=== PATIENT | female | born 1950 | race Caucasian/White ===

== ENCOUNTER → 2016-12-15 | Outpatient (CLI) | payer MEDICARE, BC ==
--- NOTE | 2016-12-16 16:05 | CR ---
EXAM DATE: 12/15/16 PATIENT'S AGE: 66 Patient: LAURA RAMIREZ Facility: [place], [place] Site . Site : 1950 Study: XRay Extremity Right [id number]/27/2017 2:26:23 PM Ordering Physician: Myra Nichols Final Report: HISTORY: Displaced fracture 5th metatarsal. Findings: Three standing radiographs of the right foot demonstrates a marked hallux valgus deformity with moderate degenerative change at the 1st metatarsophalangeal joint. There is a slightly comminuted fracture of the distal diaphysis of the 4th metatarsal with a small amount of elder angulation of the knee distal fracture fragment. There is a slightly comminuted fracture of the distal 5th metatarsal diaphysis with medial displacement of the distal fracture fragments. No definite bridging callus is seen. There is a traction spur at the plantar aspect of the calcaneus. Impression: Slightly comminuted fractures of the distal 4th and 5th metatarsal diaphyses. Dictated by Rossy Bardales MD @ Dec 16 2016 12:21AM (Electronic Signature) Report Signed by Proxy. TANG
== END ==
LOC: MW.CHPOD 13:50
PROVIDERS: ATTEND Podiatrist Foot & Ankle Surgery
DX: S92.351A Displaced fracture of fifth metatarsal bone, right foot, initial encounter for closed fracture (principal); S92.341A Displaced fracture of fourth metatarsal bone, right foot, initial encounter for closed fracture; R26.9 Unspecified abnormalities of gait and mobility; M79.671 Pain in right foot
CPT/HCPCS: 73630-26-RT; 73630-RT; 99215

== ENCOUNTER 2020-07-07 11:19 | Day surgery (SDC) | payer MEDICARE, BC ==
[~2020-07-07 11:19] MED LIST: Lactated Ringers 1,000 ML IV SCH; Midazolam 1 MG/ML 2 ML SDV ONE; Propofol 200 MG/20 ML SDV ONE; Sodium Chloride 0.9% 10 ML SDV IV PRN; Sodium Chloride 0.9% 10 ML Syringe FLUSH PRN; Sodium Chloride 0.9% 2.5 ML Syringe FLUSH PRN; fentaNYL 100 MCG/2 ML SDV ONE
--- NOTE | 2020-07-07 12:01 | PCM.PREANE ---
Preanesthetic Assessment - Anesthesia/Transfusion/Family Hx Anesthesia History: Prior Anesthesia Without Reaction Transfusion History: No Prior Transfusion(s) - Review of Systems General: No Symptoms Pulmonary: No Symptoms Cardiovascular: No Symptoms Gastrointestinal: No Symptoms Neurological: No Symptoms Other: Reports: None - Physical Assessment NPO Status Date: 07/07/20 NPO Status Time: 09:00 (water and pop) Height: 1.52 m Weight: 59.874 kg ASA Class: 3 Mental Status: Alert & Oriented x3 Airway Class: Mallampati = 2 Dentition: Reports: Normal Dentition Thyro-Mental Finger Breadths: 2 Mouth Opening Finger Breadths: 3 ROM/Head Extension: Full Lungs: Clear to Auscultation, Normal Respiratory Effort Cardiovascular: Regular Rate, Regular Rhythm - Allergies Allergies/Adverse Reactions: Allergies Allergy/AdvReac Type Severity Reaction Status Date / Time Penicillins Allergy Swelling Verified 07/01/20 11:29 povidone-iodine Allergy Swelling Verified 07/01/20 11:29 [From Betadine] soap [From Betadine] Allergy Swelling Verified 07/01/20 11:29 - Acknowledgements Anesthesia Type Planned: MAC (The patient understands and accepts the anesthetic risks and benefits, including possible conversion to general anesthesia. She has signed the consent. ) PreAnesthesia Questionnaire HEENT History: Reports: Macular Degeneration Other HEENT History: wears glasses Cardiovascular History: Reports: Hypertension Respiratory History: Reports: COPD (took inhalers this morning) Gastrointestinal History: Reports: Colon Polyp, Other (See Below) Other Gastrointestinal History: perianal fistula Genitourinary History: Reports: None [employer] History: Reports: Musculoskeletal History: Reports: Arthritis, Fracture Other Musculoskeletal History: hx fx bone in rt foot Neurological History: Reports: None Psychiatric History: Reports: None Endocrine/Metabolic History: Reports: None Hematologic History: Reports: None Immunologic History: Reports: None Oncologic (Cancer) History: Reports: Breast Dermatologic History: Reports: None - Infectious Disease History Infectious Disease History: Reports: None - Past Surgical History Head Surgeries/Procedures: Reports: None HEENT Surgical History: Reports: None Respiratory Surgical History: Reports: None GI Surgical History: Reports: Colonoscopy Female Surgical History: Reports: Breast Biopsy, Section Other Female Surgeries/Procedures: breast lumpectomy for malignant neoplasm of breast followed with radiation Endocrine Surgical History: Reports: None Neurological Surgical History: Reports: None Musculoskeletal Surgical History: Reports: None Oncologic Surgical History: Reports: Lumpectomy Dermatological Surgical History: Reports: None - SUBSTANCE USE Tobacco Use Status *Q: Current Every Day Tobacco User (for 40 years) Tobacco Use Within Last Twelve Months: Cigarettes Days Per Week of Alcohol Use: 0 Recreational Drug Use History: No - HOME MEDS Home Medications: Home Meds Albuterol [Ventolin HFA] 2 puff INH QID PRN 07/01/20 [History] Anastrozole [Arimidex] 1 mg PO DAILY 07/01/20 [History] Budesonide/Formoterol Fumarate [Symbicort 80-4.5 MCG] 2 puff INH BID 07/01/20 [History] Calcium Carb/Vit D3/Minerals [Calcium 600+D Plus Minerals] 1 tab PO BID 07/01/20 [History] Latanoprost/Pf [Latanoprost 0.005% Eye Drop] 1 drop EYEBOTH BEDTIME 07/01/20 [History] Merritt-3/DHA/Epa/Fish Oil [Merritt-3 Fish Oil 1,000 MG Sfgl] 1 tab PO DAILY 07/01/20 [History] Vit A/Vit C/Vit E/Zinc/Copper [Preservision] 1 tab PO BID 07/01/20 [History] hydroCHLOROthiazide [Hydrochlorothiazide] 25 mg PO DAILY 07/01/20 [History] lisinopriL [Lisinopril] 20 mg PO BID 07/01/20 [History] - CURRENT (IN HOUSE) MEDS Current Meds: Current Medications Lactated Ringer's (Ringers, Lactated) 1,000 mls @ 125 mls/hr IV ASDIRECTED THANH Sodium Chloride (Saline Flush) 10 ml FLUSH ASDIRECTED PRN PRN Reason: Keep Vein Open Sodium Chloride (Saline Flush) 2.5 ml FLUSH ASDIRECTED PRN PRN Reason: Keep Vein Open Sodium Chloride (Saline Flush) 10 ml FLUSH ASDIRECTED PRN PRN Reason: Keep Vein Open Sodium Chloride (Saline Flush) 2.5 ml FLUSH ASDIRECTED PRN PRN Reason: Keep Vein Open Sodium Chloride (Normal Saline) 10 ml IV ASDIRECTED PRN PRN Reason: IV Use Discontinued Medications Fentanyl (Sublimaze) Confirm Administered Dose 100 mcg .ROUTE .STK-MED ONE Stop: 07/07/20 11:18 Lidocaine HCl (Xylocaine-Mpf 1%) Confirm Administered Dose 5 ml .ROUTE .STK-MED ONE Stop: 07/07/20 11:19 Midazolam HCl (Versed 1 Mg/Ml) Confirm Administered Dose 2 mg .ROUTE .STK-MED ONE Stop: 07/07/20 11:18 Propofol (Diprivan 20 Ml) Confirm Administered Dose 400 mg .ROUTE .STK-MED ONE Stop: 07/07/20 11:18
[2020-07-07] MEDS ORDERED: Clindamycin Phosphate in D5W 50 ML ONE (12:27)
--- NOTE | 2020-07-07 12:54 | PCM.POSTAN ---
POST ANESTHESIA ASSESSMENT - MENTAL STATUS Mental Status: Alert, Oriented - VITAL SIGNS Vital Signs: Last Vital Signs Temp 37.2 C 07/07/20 11:35 Pulse 76 07/07/20 12:50 Resp 17 07/07/20 12:50 BP 109/54 L 07/07/20 12:50 Pulse Ox 98 07/07/20 12:50 - RESPIRATORY Respiratory Status: Respiratory Rate WNL, Airway Patent, O2 Saturation Stable - CARDIOVASCULAR CV Status: Pulse Rate WNL, Blood Pressure Stable - GASTROINTESTINAL GI Status: No Symptoms - PAIN Pain Score: 0 - POST OP HYDRATION Hydration Status: Adequate & Stable - OBSERVATIONS Free Text/Narrative:: No anesthesia problems
--- NOTE | 2020-07-07 13:23 | PCM48HPAN ---
Post Anesthesia Note - EVALUATION WITHIN 48HRS OF ANESTHETIC Vital Signs in Normal Range: Yes Patient Participated in Evaluation: Yes Respiratory Function Stable: Yes Airway Patent: Yes Cardiovascular Function Stable: Yes Hydration Status Stable: Yes Pain Control Satisfactory: Yes Nausea and Vomiting Control Satisfactory: Yes Mental Status Recovered: Yes Vital Signs: Last Vital Signs Temp 37.2 C 07/07/20 11:35 Pulse 76 07/07/20 12:50 Resp 17 07/07/20 12:50 BP 109/54 L 07/07/20 12:50 Pulse Ox 98 07/07/20 12:50
--- NOTE | 2020-07-07 13:24 | PCM.OPNOTE ---
- General Post-Op/Procedure Note Date of Surgery/Procedure: 07/07/20 Operative Procedure(s): Diagnostic colonoscopy Findings: Patchy areas of cobblestone like inflammation associated with superficial ulcers. Complex perianal fistula Pre Op Diagnosis: History of colon polyps, perianal fistula Post-Op Diagnosis: Colitis, perianal fistula [place] [facility] [place]geon: Babs Valverde Condition: Good Free Text/Narrative:: Intake & Output 07/06/20 07/07/20 07/07/20 22:59 06:59 14:59 Intake Total 350 Balance 350
--- NOTE | 2020-07-08 11:45 | OR ---
SURGEON: BABS VALVERDE MD DATE OF PROCEDURE: 07/07/2020 PREOPERATIVE DIAGNOSES: 1. Perianal fistula. 2. History of colon polyps. POSTOPERATIVE DIAGNOSES: 1. Perianal fistula. 2. Colitis. PROCEDURE PERFORMED: Diagnostic colonoscopy with biopsy. PRIMARY SURGEON: Babs Valverde MD ANESTHESIA: MAC. INSTRUMENT USED: Olympus colonoscope. EXTENT OF EXAM: To the cecum. PREPARATION: Good. LIMITATIONS: None. INDICATIONS FOR EXAMINATION: The patient is a 70-year-old female who has a past medical history significant for colon polyps. She also has a chronic perianal fistula. She is due for a colonoscopy. The patient and I discussed the procedure; expected perioperative course; as well as risks including bleeding, infection, or damage to surrounding structures including perforation. The patient verbalized understanding and wishes to proceed. PROCEDURE IN DETAIL: The patient was brought into the endoscopy suite and placed in a left lateral decubitus position. A time-out was completed verifying the patient's name, age, date of , allergies, and procedure to be performed. Monitored anesthesia care was induced and continuous oxygen was provided via nasal cannula throughout the procedure. After adequate sedation was achieved, a digital rectal exam was performed. The patient was noted to have an enlarged hemorrhoidal column and at least two sinus tracts consistent with perianal fistula disease. A well- lubricated colonoscope was inserted in the rectum and advanced under direct visualization to the level of the cecum. The cecum was identified by both visual and anatomic landmarks. A photograph was taken of the cecal cap; however, I was unable to loop the scope within the cecum due to looping more proximally. The patient was noted during insertion of the scope to have multiple areas of inflamed appearing tissue that was somewhat friable. So no attempt was made to perform aggressive maneuvers to get a retroflexed view. The scope was fully withdrawn while examining the color, texture, anatomy, and integrity of the mucosa from the cecum to the anal canal. The patient was noted to have patchy areas of inflammation associated with a cobblestone like pattern. There were multiple superficial ulcers throughout the tissue and the areas of inflammation were slightly friable. Multiple photographs were taken. Random biopsies were taken in the ascending colon, the transverse colon, the descending colon, as well as the sigmoid colon. A second biopsy was taken in the sigmoid colon and labeled as sigmoid colon biopsy #2. This was at 35 cm. I could not tell if the patient had a large sessile polyp or if this was just an enlarged and inflamed appearing piece of mucosa. The scope was then brought into the rectum and retroflexed to allow visualization of the anal canal opening. I could see the enlarged hemorrhoid tissue and a photograph was taken. The scope was then straightened out and fully withdrawn. The cecum to anus time was greater than 6 minutes. The patient tolerated the procedure well and was transferred to the PACU in stable condition. ENDOSCOPIC DIAGNOSES: 1. Perianal fistula. 2. Colitis, concerning for Crohn disease. RECOMMENDATIONS: We will follow up on the patient's biopsies and discuss any further treatment in clinic. JACOBY STUART /[id number]
== END 2020-07-07 13:30 | disposition home or self-care (01) ==
LOC: MW.SDS 11:19
PROVIDERS: ATTEND Surgery
DX: K63.5 Polyp of colon (principal); K60.3 Anal fistula; K52.9 Noninfective gastroenteritis and colitis, unspecified; K64.9 Unspecified hemorrhoids; J44.9 Chronic obstructive pulmonary disease, unspecified; I10 Essential (primary) hypertension; F17.200 Nicotine dependence, unspecified, uncomplicated; Z88.8 Allergy status to other drugs, medicaments and biological substances; Z79.899 Other long term (current) drug therapy; Z98.890 Other specified postprocedural states; Z88.0 Allergy status to penicillin
CPT/HCPCS: 45380; J2001; J2250; J2704; J3010; J7120; 00811; 88305